=== PATIENT | female | born 1955 | race Two or more races ===

== ENCOUNTER 2020-08-03 19:33 | Emergency (ER) | payer MEDICAID, OTHER ==
[~2020-08-03] VITALS: Ht 162.6 cm; Wt 63.5 kg
[2020-08-03 21:58] LABS: Basophils # (auto) 0 10 ^3/uL (0-0.2); Basophils % (auto) 0.3 % (0.0-2.0); Eosinophils # (auto) 0 10 ^3/uL (0-0.8); Hematocrit 32.4 % (36.0-46.0); Hemoglobin 11.8 g/dL (12.2-16.2); Lymphocytes # (auto) 0.8 10 ^3/uL (0.4-5.4); Lymphocytes % (auto) 10.5 % (10.0-50.0); Mean Corpuscular Hemoglobin 31.5 pg (28.0-32.0); Mean Corpuscular Hgb Conc. 36.4 g/dL (32.0-36.0); Mean Corpuscular Volume 86.5 fL (80.0-100.0); Monocytes # (auto) 0.7 10 ^3/uL (0-1.3); Monocytes % (auto) 9.4 % (0.0-12.0); Neutrophils # (auto) 6.1 10 ^3/uL (1.6-8.6); Neutrophils % (auto) 79.8 % (37.0-80.0); Red Blood Cells 3.75 10^6/uL (4.0-5.20); Red Cell Distribution Width 13.3 % (11.8-14.3); White Blood Cell 7.7 10^3/uL (4.4-10.8)
[2020-08-03 22:17] LABS: Urine Amorphous Crystal FEW /hpf (None Seen); Urine Bacteria MOD /hpf (None Seen); Urine Blood 1+ /uL (Negative); Urine Specific Gravity 1.008 (1.001-1.035); Urine WBC 2 /hpf (0 - 5)
[2020-08-03 22:21] LABS: Calcium 8.3 mg/dL (8.5-10.1); Potassium 4.8 mmol/L (3.5-5.1)
[2020-08-03] MEDS ORDERED: MORPHINE SULFATE INJECTION 2 MG/ML SYRG ONE (22:21)
[2020-08-03] MEDS ORDERED: ONDANSETRON HCL 4 MG/2 ML VIAL ONE (22:21)
[2020-08-03 22:24] LABS: Albumin 2.8 g/dL (3.4-5.0); BUN/Creatinine Ratio 17.1
[2020-08-03 22:27] LABS: Bilirubin, Total 0.6 mg/dL (0.2-1.0); Total Protein 6.7 g/dL (6.4-8.2)
[2020-08-03] MEDS ORDERED: MORPHINE SULFATE INJECTION 2 MG/ML SYRG IV ONE (22:30)
[2020-08-03] MEDS ORDERED: ONDANSETRON HCL 4 MG/2 ML VIAL IV ONE (22:30)
[2020-08-04] MEDS ORDERED: MORPHINE SULFATE 4 MG/ML SYR/VIAL IV ONE (01:00)
[2020-08-04 04:08] VITALS: BP 156/65
== END 2020-08-04 04:54 | disposition home or self-care (01) ==
LOC: ER 19:36
DX: S32.502A Unspecified fracture of left pubis, initial encounter for closed fracture (principal); S70.02XA Contusion of left hip, initial encounter; S80.02XA Contusion of left knee, initial encounter; I10 Essential (primary) hypertension; Z20.822 Contact with and (suspected) exposure to COVID-19; W10.8XXA Fall (on) (from) other stairs and steps, initial encounter; Y93.89 Activity, other specified; Y92.89 Other specified places as the place of occurrence of the external cause; Y99.8 Other external cause status
CPT/HCPCS: 36415; 73502; 73552; 80053; 81001; 85025; 87426; 93005; 96374; 96375; 96376; 99285; J2270; J2405